=== PATIENT | female | born 2000 | race Caucasian/White ===

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

== ENCOUNTER 2023-06-17 03:26 | Emergency (ER) | payer OTHER, SELFPAY ==
[2023-06-17 03:27] VITALS: BP 136/91; PULSE 111; RESP 15; TEMP 36.5; O2SAT 97; BMI 21.9
--- NOTE | 2023-06-17 03:40 | EX.ED.DYSGE1 ---
HPI History of Present Illness Chief Complaint: General Illness Informant: patient Onset/Context/Timing Onset: Hours (1) Narrative Narrative: Patient woke up just over an hour ago feeling nauseated and shaky. She vomited. She felt like her blood sugar was low, she has a history of episodes like this usually occurring at night, her doctor thought they sounded like hypoglycemic episodes. Therefore she got some candy and tried to eat it but she states she was so nauseated that she could not and spit them out. She tried to go back to sleep but vomited again so her roommate brought her here. She does not feels better right now but still feels nauseated. She denies any fevers or chills, diarrhea, abdominal pain this morning. She states she has anxiety and as a result of all of this has felt very anxious and a little short of breath which oftentimes she feels related to her anxiety which she did not wake up feeling dyspneic. She did have a little bit of left upper quadrant pain earlier but it is gone. She did take a Tums and was able to keep that down for short period of time. [facility] Medical History Anxiety Home Medications metoclopramide HCl 5 mg tablet (Reglan) 5 mg PO Q6H PRN nausea and vomiting #12 tabs 06/17/23 [Rx Last Taken Unknown] Allergy/AdvReac Type Severity Reaction Status Date / Time No Known Allergies Allergy Verified 12/31/20 02:43 Social History Smoking Status: Never smoker ROS ROS ED Constitutional Constitutional ED: Reports as per HPI and malaise; Denies chills or fever(s) Eyes Eyes: Denies change in vision or diplopia ENT ENT ED: Denies rhinorrhea or sore throat Cardiovascular Cardiovascular: Denies chest pain or palpitations Respiratory/Chest Respiratory/Chest: Denies cough or dyspnea Gastrointestinal Gastrointestinal: Reports nausea and vomiting; Denies abdominal pain or diarrhea Genitourinary Genitourinary ED: Denies dysuria or hematuria Musculoskeletal Musculoskeletal: Denies back pain or neck pain Integumentary Denies abscess or rash Neurologic Neurologic: Denies headache(s), paresthesias or weakness Psychiatric Psychiatric: Reports anxiety; Denies depression or suicidal thoughts EXAM Physical Exam Const Vital Signs: 06/17/23 03:27 06/17/23 03:32 06/17/23 05:00 Temperature 97.7 F L Temperature Source Oral Pulse Rate 111 H 98 Respiratory Rate 15 10 L Respiratory Effort Normal Respiratory Pattern Normal Blood Pressure 136/91 H 123/79 H Blood Pressure Mean 106 93 Pulse Ox 97 99 Oxygen Delivery Method Room Air Room Air Positive well nourished and well developed General Appearance ED: well developed and NAD HEENT Reports moist mucous membranes normocephalic and atraumatic Eyes PERRL and EOMs intact bilaterally Neck full ROM and supple Chest Wall inspection of chest normal and palpation of chest normal Resp normal respiratory effort, normal air movement and clear to auscultation bilaterally Effort and Inspection: able to speak in complete sentences Cardio regular rate, regular rhythm and no murmurs Rate: other Other Details: mild tachycardia; pt states she feels nauseated, HR goes up by about 10 GI non-tender and non-distended Auscultation: normoactive bowel sounds Palpation: soft Back/Spine no CVA tenderness General Back: other FROM Extremity normal to inspection General Extremety ED: Negative for edema, pulses abnormal or tenderness General Extremity: Negative for edema or pulses abnormal Neuro oriented x3, CN's II-XII intact bilaterally and no sensory deficits noted Sensorium / Orientation: awake and alert Motor Exam: strength 5/5 throughout Psych mental status grossly normal Skin no rashes or lesions noted and no wounds MDM MDM MDM Narrative Medical decision making narrative: We did a fingerstick, it is 102. Normal. We gave her Zofran 8 mg ODT, she put it under her tongue but it made her feel more nauseated and she threw it up. Therefore we placed an IV and gave her Zofran 4 mg IV and did a serum which is negative. She still feels a little nauseated after this that she was given Reglan 2.5 mg which seemed to help more. Heart rate down to 95. Denying abdominal pain. I think this is more likely reflux/gastritis-type process given history and blood sugar that is reading normal here. She is feeling better and is tolerating oral fluids and feels comfortable going back to her dorm. Will give her prescription for some nausea medication, I recommend taking daily famotidine to see if that helps this as well. Lab Data Attestation: I reviewed the patient's lab results. Labs: Laboratory Results - last 24 hr 06/17/23 06/17/23 03:31 04:00 Serum , Qual NEGATIVE POC Glucose 102 Rhythm Strip Rhythm Strip: Sinus Tach Rate: 112 Ectopy: None Discharge Plan Triage Chief Complaint: General Illness ED Provider: Ramu Gibbons Dx/Rx/DC Orders Clinical Impression: Nausea & vomiting Instructions: ED GERD (Adult), ED Vomiting (Adult) Prescriptions: New metoclopramide HCl [Reglan] 5 mg tablet 5 mg PO Q6H PRN (Reason: nausea and vomiting) Qty: 12 0RF Primary Care Provider: LOAN MARQUEZ Referrals: [facility] [Group of Physicians] - As Needed Activity Restrictions/Additional Instructions: Consider taking a daily or nightly Pepcid 40 mg tablet. Try not to eat too late. Disposition Disposition: Home, Self Care
[2023-06-17] MEDS: Ondansetron ODT 4 MG Tablet 8 MG PO (03:47)
[2023-06-17 03:48] LABS: Bedside Glucose 102 mg/dL (74-106)
[2023-06-17] MEDS: Ondansetron 4 MG/2 ML Vial IV (03:57)
[2023-06-17 04:11] LABS: Internal QC Validated? YES +Cl - CLEAR BKGD; Pregnancy, Serum, hCG Quali. NEGATIVE Negative
[2023-06-17] MEDS: Metoclopramide 10 MG/2 ML Vial 2.5 MG IV (04:47)
[2023-06-17 05:00] VITALS: BP 123/79; PULSE 98; RESP 10; O2SAT 99
[2023-06-17 05:33] VITALS: BP 127/86; PULSE 97; RESP 16; TEMP 36.4; O2SAT 99
== END 2023-06-17 05:39 | disposition home or self-care (01) ==
PROVIDERS: Emergency Provider Emergency Medicine; Visit Provider Emergency Medicine
DX: R11.2 Nausea with vomiting, unspecified (principal); F41.9 Anxiety disorder, unspecified
CPT/HCPCS: 82962; 84703; 96374; 96375; 99284; J7030; A4216; J2405